=== PATIENT | female | born 1975 | race Caucasian/White ===

== ENCOUNTER 2021-08-18 07:30 | Inpatient (IN) | payer OTHER ==
[~2021-08-18] VITALS: Ht 149.9 cm; Wt 53.5 kg
[~2021-08-18 07:30] MED LIST: ELIQUIS5 MG PO; FIORICET 50-321 EACH PO
[2021-08-18] MEDS ORDERED: SYNTHROID75 MCG PO (09:03)
[2021-08-20] MEDS ORDERED: PROAIR HFA8.5 GM (08:38)
== END 2021-08-23 10:21 | disposition home or self-care (01) | DRG 743 ==
LOC: OB/GYN 08-20 05:55 → O/R 08-20 05:55 → SURH 08-20 07:00 → OB/GYN 08-20 10:54
PROVIDERS: ADMIT Obstetrics & Gynecology Maternal & Fetal Medicine; ATTEND Obstetrics & Gynecology Maternal & Fetal Medicine
PROC: 0UT70ZZ Resection of Bilateral Fallopian Tubes, Open Approach (ICD-10-PCS; 2021-08-20)
PROC: 0UT20ZZ Resection of Bilateral Ovaries, Open Approach (ICD-10-PCS; 2021-08-20)
PROC: 0UT90ZL Resection of Uterus, Supracervical, Open Approach (ICD-10-PCS; principal; 2021-08-20 07:00)
DX: D25.1 Intramural leiomyoma of uterus (principal); D25.2 Subserosal leiomyoma of uterus; N83.11 Corpus luteum cyst of right ovary; N83.12 Corpus luteum cyst of left ovary; N80.0 Endometriosis of uterus; Z20.822 Contact with and (suspected) exposure to COVID-19